=== PATIENT | male | born 1940 | race Caucasian/White ===

== ENCOUNTER 2016-04-26 08:44 | Emergency (ER) | payer BC ==
[~2016-04-26 08:44] MED LIST: ASPIRIN PO; PERCOCET5/325 PO
== END 2016-04-26 14:12 | disposition home or self-care (01) ==
LOC: CED 08:44
DX: S03.01XA Dislocation of jaw, right side, initial encounter (principal); I10 Essential (primary) hypertension; G20 Parkinson's disease; Z79.82 Long term (current) use of aspirin; X58.XXXA Exposure to other specified factors, initial encounter
CPT/HCPCS: 21480; 99152; 99153; 99283; J3010